=== PATIENT | female | born 1990 | race Caucasian/White ===

== ENCOUNTER 2017-02-22 11:04 | Day surgery (SDC) | payer OTHER ==
--- NOTE | 2017-02-22 11:35 | PDOC.EVN ---
Event Note - Event Note Event Note: 02/22/17 @ 1130: L&D Triage A Patient seen in triage for vaginal spotting, no real contractions. No sex, no trauma, no HX cervical incompetence. EGA 18-19 weeks. Patient has multiple past medical issues including gastritis/ulcers by her HX, neurological issues, migraines. 26 yo WF SAB1 prior at term, 18 weeks by dates. Patient has a full handwritten PROGRESS NOTE in the physical chart. Please see that note for full H&P. Assessment: 18-19 week spotting, no recent sex or trauma. RH positive by her report. Plan: 1. TVU for cervical legth and placenta location (r/o previa) 2. CMP for vague midepigastric discomfort...not suspicious for cholecyctitis.
[2017-02-22 11:46] VITALS: BMI 26.6
--- NOTE | 2017-02-22 11:59 | PDOC.EVN ---
Event Note - Event Note Event Note: 02/22/17 @ 1158: SONO NOTE (present during US performance): Sono with marginal previa. Cervical length is 3.5-4cm (average). Info on previa given. No sexual activity at this time until placenta location rechecked at greater than 24 weeks. Await CMP.
[2017-02-22] MEDS ORDERED: FLU VACC QS2017-18 36 mo. & older 0.5 ML SYRINGE IM ONE (12:00)
[2017-02-22 12:18] LABS: ALT (SGPT) 10 U/L (8-55); AST (SGOT) 15 U/L (5-34); Alkaline Phosphatase 15 U/L (40-150); Anion Gap 9 mmol/L (10-20); BUN (Urea Nitrogen) 8 mg/dL (7.0-18.7); Bilirubin, Total 1.1 mg/dL (0.2-1.2); Calc. Creatinine Clearance 162 mL/min (70-130); Calcium 8.6 mg/dL (7.8-10.44); Carbon Dioxide 24 mmol/L (22-29); Chloride 107 mmol/L (98-107); Estimated GFR-MDRD Greater than 90; Globulin 2.3 g/dL (2.4-3.5); Protein, Total 5.7 g/dL (6.0-8.3)
--- NOTE | 2017-02-22 12:30 | PDOC.EVN ---
Event Note - Event Note Event Note: 02/22/17 @ 1230: SIMA steel. CATY for outpatient follow up. Sexual restriction due to marginal previa.
--- NOTE | 2017-02-22 12:35 | ULT ---
LIMITED OBSTETRIC SONOGRAM: HISTORY: Third trimester . Evaluate for placenta previa. FINDINGS: The cervix is closed and 4.5 cm in length. The grade II placenta is anterior. It is 4 cm from the i nternal cervical os. Amniotic fluid is within normal limits. IMPRESSION: Cervix is closed. No evidence of placenta previa. POS: [facility]
== END 2017-02-22 12:50 | disposition home or self-care (01) ==
LOC: L&D/OP 11:04
PROVIDERS: ATTEND Obstetrics & Gynecology
DX: O99.89 Other specified diseases and conditions complicating pregnancy, childbirth and the puerperium (principal); R10.13 Epigastric pain; O26.852 Spotting complicating pregnancy, second trimester; Z88.1 Allergy status to other antibiotic agents; Z91.040 Latex allergy status; Z3A.18 18 weeks gestation of pregnancy
CPT/HCPCS: 36415; 76815; 80053

== ENCOUNTER 2017-07-22 02:54 | Inpatient (IN) | payer OTHER ==
[2017-07-30] MEDS ORDERED: Lidocaine 1% (PF) 30 ML VIAL SC PRN (15:52)
[2017-07-30] MEDS ORDERED: Promethazine HCl 25 MG/ML VIAL IM PRN (15:52)
[2017-07-30] MEDS ORDERED: LR / Pitocin 40 units/1000 ml 1,000 ML IV PRN (15:52)
[2017-07-30] MEDS ORDERED: Acetaminophen 500 MG TAB PO PRN (15:52)
[2017-07-30] MEDS ORDERED: Ondansetron HCl/PF 4 MG/2 ML Vial IVP PRN (15:52)
[2017-07-31] MEDS: Lactated Ringer's 1,000 ML IV SCH ×4 (07:35→14:23)
[2017-07-31 07:43] VITALS: BMI 32.2
[2017-07-31] MEDS: LR 500 ML/Oxytocin 10 units 500 ML IV SCH ×2 (08:03→11:15)
[2017-07-31 08:11] LABS: Hemoglobin 12.8 g/dL (12.0-16.0); Mean Corpuscular HGB CONC 33.9 g/dL (32.0-36.0); Mean Corpuscular Hemoglobin 31.6 pg (27.0-31.0); Mean Corpuscular Volume 93.1 fl (81.0-99.0); Mean Platelet Volume 7.7 fL (7.4-10.4); Platelet Count 142 thou/uL (130-400); RBC Distribution Width 12.9 % (11.5-14.5); Red Blood Cell (RBC) Count 4.07 mill/uL (4.20-5.40); White Blood Cell (WBC) Count 8.2 thou/uL (4.8-10.8)
[2017-07-31 08:50] LABS: HBSAg Index 0.24 S/CO (0-0.99); Hep B Surf Ag Non-Reactive S/CO (NonReactive)
[2017-07-31 08:52] LABS: Syphilis Antibody Nonreactive (Nonreactive); Syphilis Antibody Index 0.04 S/CO (<1.00 Non-Reactive)
--- NOTE | 2017-07-31 11:26 | PDOC.EVN ---
Event Note - Event Note Event Note: L&D: Called to see patient in LDR2 for unilateral on/off vision loss. Now resolved spontaneously. BPs wnl. I have seen the patient at bedside, history reviewed. Patient has full note in progress notes. 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 Report given to Reese.
--- NOTE | 2017-07-31 12:36 | PDOC.EVN ---
Event Note - Event Note Event Note: @1130: Called Dr Romulo Coley's office...left request for on-call physician to assess the patinet as phone number I had for him was not functional.
[2017-07-31] MEDS ORDERED: DISCONTINUE ALL PREVIOUS NARCOTICS FS SCH (13:30)
[2017-07-31] MEDS ORDERED: Bupivacaine 0.5% 20 ML, fentaNYL Citrate/PF 400 MCG in Sodium Chloride 0.9% 72 ML EPIDURAL SCH (13:30)
[2017-07-31] MEDS ORDERED: Acetaminophen 325 MG TAB PO PRN (14:11)
[2017-07-31] MEDS ORDERED: Promethazine HCl 25 MG/ML VIAL IM PRN (14:11)
[2017-07-31] MEDS ORDERED: Eucerin (Mineral Oil/Petrolatum,White) 30 gm Jar TOP PRN (14:11)
[2017-07-31] MEDS ORDERED: ePHEDrine/0.9% NaCl/PF SYRINGE 50 mg/10 ml SLOW IVP PRN (14:11)
[2017-07-31] MEDS ORDERED: diphenhydrAMINE 50 MG/ML VIAL IVP PRN (14:11)
[2017-07-31] MEDS ORDERED: Ondansetron HCl/PF 4 MG/2 ML Vial IVP PRN (14:11)
[2017-07-31] MEDS ORDERED: Lactated Ringer's 500 ML IV PRN (14:11)
[2017-07-31] MEDS ORDERED: Naloxone HCl 0.4 mg/ml Vial IVP PRN ×2 (14:11)
[2017-07-31] MEDS ORDERED: Fentanyl 4mcg/Marcaine 0.1% Cassette 100 ML EPIDURAL SCH (14:15)
[2017-07-31] MEDS ORDERED: Communication Order-Pharmacy FS SCH (14:15)
[2017-07-31] MEDS ORDERED: Preparation H Ointment 28 GM TUBE PR PRN (16:32)
[2017-07-31] MEDS ORDERED: Bisacodyl 10 MG SUPP PR PRN (16:32)
[2017-07-31] MEDS ORDERED: traMADol HCl 50 MG TAB PO PRN (16:32)
[2017-07-31] MEDS ORDERED: Milk Of Magnesia 30 ML UDCUP PO PRN (16:32)
[2017-07-31 16:34] LABS: Actual Bicarbonate (HCO3a) 28.5 mEq/L (22-26); Base Excess (BEa) 1.1 mEq/L (0 (+/-) 2.5)
--- NOTE | 2017-07-31 16:34 | PDOC.OPDEL ---
OB Operative/Delivery Note Delivery Dr/Surgeon: Reese Pre-Delivery Diagnosis: elective induction, other (moderate meconium) Procedure/Post Delivery Dx: spontaneous vaginal delivery Weeks gestation: 41 Anesthesia: epidural - Findings A Sex: male - 1 min: 7 - 5 min: 9 - Additional Findings/Plan Placenta delivered: spontaneous Repaired Obstetrical Laceration: 2nd degree
[2017-07-31] MEDS ORDERED: LR / Pitocin 40 units/1000 ml 1,000 ML IV SCH (16:45)
[2017-07-31] MEDS ORDERED: Misoprostol 200 MCG TAB VAG SCH (16:45)
[2017-07-31] MEDS: Ibuprofen 800 MG TAB PO SCH (21:41)
[2017-07-31] MEDS: Docusate Calcium (SURFAK) 240 MG CAP PO SCH (21:41)
[2017-07-31] MEDS: Ferrous Sulfate 325 MG TAB PO SCH (22:13)
--- NOTE | 2017-08-01 03:06 | CON ---
DATE OF CONSULTATION: 07/31/2017 REFERRING PHYSICIAN: Shane Ma MD REASON FOR CONSULTATION: Transient visual loss. HISTORY OF PRESENT ILLNESS: Ms. Bentley is a pleasant 26-year-old female, who is being considered for evaluation of transient visual loss. She reports that about 2 days ago, she had an episode of sudde n onset of vision loss in the left temporal field that lasted for approximately 10-15 minutes. There were no other associated symptoms. She did not have slurred speech; numbness or tingling on face; f acial weakness; dysphagia; numbness, tingling or weakness on extremities; or difficulty with balance. She did not have any headache. She did not seek any medical attention at that time. She had prese nted today in labor. She was planned to undergo delivery today. While she was awaiting to the [facility] er, she had another episode of vision loss in the right inferior division, both nasally and temporal region. This lasted for approximately 10-15 minutes and then resolved. There were no associated sym ptoms. During that time, her vital signs were stable. She did not have any spike in blood pressure. She has not had any recurrence of symptoms since that time. She reports that she has a history of Edgar and has been diagnosed with benign brain mass in 2004. She was supposed to have a regular follow up; however, she has not had any workup done in the past couple of years. This has not resulted in a ny form of neurological deficit. PAST MEDICAL HISTORY: Significant for, 1. Hypomelanosis of Edgar. 2. Benign brain mass. PAST SURGICAL HISTORY: None significant. SOCIAL HISTORY: She denies smoking, alcohol use, or illicit drug use. CURRENT MEDICATIONS: Please review MAR. ALLERGIES: Include AMOXICILLIN and LATEX. FAMILY HISTORY: Noncontributory. REVIEW OF SYSTEMS: As mentioned in the HPI, otherwise negative. PHYSICAL EXAMINATION: VITAL SIGNS: Stable. GENERAL: Well-developed, well-nourished female in no apparent distress. NEUROLOGIC: Mental status: The patient is awake, alert, oriented x3. Speech and language: Fluent speech. Cranial nerves: Pupils are 3 mm and reactive. Visual peres are intact. Extraocular muscl es are intact. Face is symmetric. Tongue and uvula are midline. Motor exam: The rest of the neuro logical exam was not completed as she was . LABORATORY DATA: Labs are reviewed, which included CBC and RPR, which are all normal. IMPRESSION: 1. Transient visual loss. 2. Brain mass. 3. Hypomelanosis of Edgar. Ms. Bentley is a pleasant 26-year-old female , had an episode of transient visual loss, which is likely secondary to a migraine aura. She had normal blood pressure during her event, which precludes eclampsia or preeclampsia, as well as posterior reversible leukoencephalopathy-type s yndrome. I would recommend obtaining MRI brain with and without contrast if okayed by the obstetrici an as she is undergoing . If the MRI brain is negative for any acute intracranial abnor mality, then she can be followed up as an outpatient. No further neurological workup needed from my standpoint. Thank you for the consultation.
[2017-08-01] MEDS ORDERED: Benzocaine/Menthol 20-0.5% 60 ML CAN TOP PRN (04:07)
[2017-08-01] MEDS: Ibuprofen 800 MG TAB PO SCH ×3 (05:01→21:53)
--- NOTE | 2017-08-01 08:12 | PDOC.PP ---
Post Progress Note Post Day #: 1 Subjective: no further visual loss noted. Neurology recommends mri of brain with and without contrast. PO intake tolerated: yes Flatus: yes Ambulation: yes Vital Signs (12 hours) Temp Pulse Resp BP 08/01/17 04:00 98.3 F 84 16 114/60 08/01/17 00:00 98.6 F 85 16 116/55 L 07/31/17 21:25 99.1 F 90 16 113/55 L Weight Weight 206 lb - Physical Examination General: NAD Cardiovascular: no m/r/g, RRR Result Diagrams: 07/31/17 07:35 Additional Labs: Post Labs Hep Bs Antigen Non-Reactive S/CO (NonReactive) 07/31/17 07:35 - Assessment/Plan post day 1 stable and doing well obstrically. Had episodes of transient visual loss ..neuro rec's mri of brain with and without contrast. If no acute changes --ok fo dicharge with out patient f/u with them.. suspec t migraine with aura as etiology..
[2017-08-01] MEDS ORDERED: Adacel (T-DAP) 0.5 ML VIAL IM ONE (09:00)
[2017-08-01] MEDS: Ferrous Sulfate 325 MG TAB PO SCH ×2 (09:16→18:00)
[2017-08-01] MEDS: Prenatal Vitamin 1 TAB PO SCH (09:17)
[2017-08-01] MEDS: Docusate Calcium (SURFAK) 240 MG CAP PO SCH ×2 (09:17→21:53)
--- NOTE | 2017-08-01 14:38 | MRI ---
MRI BRAIN WITH AND WITHOUT IV CONTRAST: DATE: 08/01/17. HISTORY: Intermittent visual field loss. The patient complains of lateral vision loss in left eye 1 month ago and now is experiencing vision loss in right eye currently. FINDINGS: There are no signal abnormalities seen throughout the brain. There is no evidence of an acute infarc tion. No abnormal areas of enhancement are seen within the brain parenchyma. The pituitary gland is asymmetrically prominent, especially on the left aspect of the pituitary gland primarily seen on the coronal and axial images. The craniocaudal dimension of the pituitary gland i s at the upper limits of normal measuring 1 cm. In addition, there is nodular prominence seen at the superior aspect of the infundibular stalk region of the hypothalamus. This is nonspecific. Septum pellucidum and third ventricle are in the midline. Ventricular system is normal in size, shap e, and position. Appropriate flow voids are demonstrated at the base of the brain. The orbits, paranasal sinuses, and skull base have a normal MRI appearance. IMPRESSION: 1. Borderline enlargement of the pituitary gland predominantly in transverse dimension. Followup ev aluation is recommended in 6 months to 1 year. A pituitary macroadenoma cannot be entirely excluded. 2. Nonspecific nodular prominence involving the superior aspect of the infundibulum in the region of the hypothalamus. Followup evaluation of this region [facility] Followup examination should be performed following a pituitary mass protocol. 3. No additional signal abnormalities or abnormal areas of enhancement are seen throughout the brain , and there is no evidence of an acute infarction. POS: [facility]
--- NOTE | 2017-08-01 21:01 | PRG ---
DATE OF SERVICE: 08/01/2017 SUBJECTIVE: Ms. Bentley is day #1. She has not had any recurrence of episodes of vision c hanges or vision loss. She denies any headache, chest pain, palpitation, dysarthria, or dysphagia. She had an MRI brain done today, which showed borderline enlargement of pituitary gland along with no nspecific nodular prominence involving the superior aspect of the infundibulum in the region of the h ypothalamus, otherwise unremarkable. PHYSICAL EXAMINATION: VITAL SIGNS: Stable. She is afebrile. GENERAL: Well-developed, well-nourished, female in no apparent distress. NEUROLOGIC: Essentially unchanged compared to yesterday. IMAGING STUDIES: MRI brain without contrast was reviewed. Findings are as noted in subjective compo nent of this dictation. IMPRESSION: 1. Transient visual loss, likely migraine aura without headache. 2. Nonspecific hypothalamic lesion, possible pituitary adenoma. ASSESSMENT AND PLAN: Ms. Bentley is a pleasant 26-year-old female who had an episode of vis ual loss that was transient in nature and resolved. Her MRI does not show any acute ischemic infarct . It does show prominence of the pituitary gland as well as nonspecific nodularity of the hypothalam ic region, for which radiologist has recommended obtaining MRI brain with and without contrast with p ituitary protocol in 6 months. I have discussed this with the patient and explained that she needs t o have MRI done in 6 months for further evaluation. 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 I have explained to her that once she i s discharged from the hospital, she needs to obtain the medical records from [place] as well as ob tain the medical images from [place], so that when she moves to a new location, she needs to follo w up with a neurologist and obtain a repeat MRI of the brain, which they can compare with the current study. No further neurological workup needed from my standpoint. Thank you for consultation.
[2017-08-02] MEDS: Ibuprofen 800 MG TAB PO SCH ×2 (06:23→13:43)
[2017-08-02 08:39] VITALS: BP 108/57; TEMP 98.4
[2017-08-02] MEDS: Docusate Calcium (SURFAK) 240 MG CAP PO SCH (10:06)
[2017-08-02] MEDS: Ferrous Sulfate 325 MG TAB PO SCH ×2 (10:06→17:31)
[2017-08-02] MEDS: Prenatal Vitamin 1 TAB PO SCH (10:06)
== END 2017-08-02 17:45 | disposition home or self-care (01) | DRG 775 ==
LOC: L&D 07-31 06:41 → 3SW 07-31 21:50
PROVIDERS: ADMIT Obstetrics & Gynecology; ATTEND Obstetrics & Gynecology
PROC: 10E0XZZ Delivery of Products of Conception, External Approach (ICD-10-PCS; principal; 2017-07-31)
PROC: 0KQM0ZZ Repair Perineum Muscle, Open Approach (ICD-10-PCS; 2017-07-31)
DX: O48.0 Post-term pregnancy (principal); D33.2 Benign neoplasm of brain, unspecified; H53.129 Transient visual loss, unspecified eye; O75.89 Other specified complications of labor and delivery; L81.6 Other disorders of diminished melanin formation; Z88.0 Allergy status to penicillin; O70.1 Second degree perineal laceration during delivery; Z3A.41 41 weeks gestation of pregnancy; Z37.0 Single live birth; G43.109 Migraine with aura, not intractable, without status migrainosus
CPT/HCPCS: 51702; 70553; 82805; 85027; 86780; 87340; J2001; J3010; J3490; J7050; J7120